=== PATIENT | male | born 1940 | race Caucasian/White ===

== ENCOUNTER 2019-06-15 09:23 | Inpatient (IN) | payer MEDICARE ==
[~2019-06-15] VITALS: Ht 170.2 cm; Wt 45.4 kg
[2019-06-15 09:31] VITALS: Ht 170.2 cm; Wt 45.4 kg
[2019-06-15 10:10] LABS: PLATELET COUNT 255 x10^3mcL (130-400); RED CELL DISTRIBUTION WIDTH 13.8 % (11.5-14.5)
[2019-06-15 10:22] LABS: CARBON DIOXIDE 25.9 mmol/L (21-32); CHLORIDE SERUM 107 mmol/L (98-107); CREATININE SERUM 3.4 mg/dL (0.7-1.3); GLUCOSE SERUM 105 mg/dL (74-106); POTASSIUM SERUM 4.3 mmol/L (3.5-5.1); SODIUM SERUM 144 mmol/L (136-145)
[2019-06-15] MEDS ORDERED: XTANDI40 M1 PO (10:25)
[2019-06-15] MEDS ORDERED: ZOLOFT25 MG PO (10:25)
[2019-06-15] MEDS ORDERED: COMTAN200 MG PO (10:26)
[2019-06-15] MEDS ORDERED: SINEMET 25-1001 TAB PO (10:26)
[2019-06-15 10:33] LABS: T3 TOTAL 0.33 ng/mL
[2019-06-15 10:55] LABS: BAND NEUTROPHIL 25 % (0-10); BASOPHIL 0 % (0-2); METAMYELOCTE 2 % (0-2); MONOCYTE 1 % (0-7); SEGMENTED NEUTROPHILS 62 % (37-75)
[2019-06-15 10:56] LABS: PLATELET MORPHOLOGY PLATELETS NORMAL
[2019-06-15 10:58] LABS: CK-MB 1.7 ng/mL (0-3.6)
[2019-06-15 11:03] LABS: FREE T4 0.94 ng/dL (0.76-1.46); FREE THYROXINE INDEX 1.8 ug/dL (1.4-4.5)
[2019-06-15 11:37] LABS: UA SPECIFIC GRAVITY >=1.030 (1.005-1.035); microscopic required? YES; urine erythrocyte 3+ (NEGATIVE)
[2019-06-15 11:39] LABS: ERYTHROCYTE SED RATE 89 mm/hr (0-20)
[2019-06-15 11:44] LABS: ALBUMIN 2.3 g/dL (3.4-5.0); TOTAL PROTEIN, SERUM 6.5 g/dL (6.4-8.2)
[2019-06-15 11:45] LABS: ALKALINE PHOSPHATASE 79 U/L (46-116); ALT/SGPT 12 U/L (16-63); AST/SGOT 54 U/L (15-37); BILIRUBIN TOTAL 0.6 mg/dL (0.20-1.00)
[2019-06-15 12:18] LABS: C REACTIVE PROTEIN 34.9 mg/dL (<=0.9)
[2019-06-15 13:23] LABS: MAGNESIUM 2.5 mg/dL (1.8-2.4); PHOSPHOROUS 4.6 mg/dL (2.5-4.9)
[2019-06-15 15:02] VITALS: BP 128/70
[2019-06-15 16:35] VITALS: BP 98/64
[2019-06-15 21:28] VITALS: BP 110/68
[2019-06-16 05:55] VITALS: BP 120/68
[2019-06-16 06:43] LABS: PLATELET COUNT 170 x10^3mcL (130-400); RED CELL DISTRIBUTION WIDTH 14.1 % (11.5-14.5)
[2019-06-16 07:23] LABS: CALCIUM 7.5 mg/dL (8.5-10.1); CARBON DIOXIDE 19.9 mmol/L (21-32); CHLORIDE SERUM 114 mmol/L (98-107); CREATININE SERUM 2.2 mg/dL (0.7-1.3); GLUCOSE SERUM 84 mg/dL (74-106); POTASSIUM SERUM 3.7 mmol/L (3.5-5.1); SODIUM SERUM 147 mmol/L (136-145)
[2019-06-16 09:00] VITALS: BP 132/71
[2019-06-16 10:30] LABS: BAND NEUTROPHIL 23 % (0-10); BASOPHIL 0 % (0-2); METAMYELOCTE 2 % (0-2); SEGMENTED NEUTROPHILS 64 % (37-75)
[2019-06-16 10:32] LABS: MONOCYTE 3 % (0-7)
[2019-06-16 10:34] LABS: rbc morphology (normal/abnorm) ABNORMAL (NORMAL)
[2019-06-16 10:35] LABS: PLATELET MORPHOLOGY PLATELETS NORMAL; burr cell (echinocyte) 1+
[2019-06-16 11:57] VITALS: BP 116/64
[2019-06-16 17:01] VITALS: BP 119/62
[2019-06-16 20:42] VITALS: BP 123/61
[2019-06-17 05:09] VITALS: BP 147/75
[2019-06-17 09:14] VITALS: BP 133/65
[2019-06-17 11:09] VITALS: BP 133/65
[2019-06-17 13:25] VITALS: BP 118/73
[2019-06-17 17:19] VITALS: BP 127/64
[2019-06-17 20:32] VITALS: BP 147/74
[2019-06-18 04:45] VITALS: BP 137/67
[2019-06-18 07:26] LABS: PLATELET COUNT 178 x10^3mcL (130-400); RED CELL DISTRIBUTION WIDTH 14.1 % (11.5-14.5)
[2019-06-18 07:31] LABS: CALCIUM 7.1 mg/dL (8.5-10.1); CARBON DIOXIDE 23.4 mmol/L (21-32); CHLORIDE SERUM 114 mmol/L (98-107); CREATININE SERUM 0.7 mg/dL (0.7-1.3); GLUCOSE SERUM 75 mg/dL (74-106); PHOSPHOROUS 2.1 mg/dL (2.5-4.9); SODIUM SERUM 150 mmol/L (136-145)
[2019-06-18 07:34] LABS: POTASSIUM SERUM 2.3 mmol/L (3.5-5.1)
[2019-06-18 09:07] VITALS: BP 142/66
[2019-06-18 09:34] LABS: BAND NEUTROPHIL 0 % (0-10); BASOPHIL 0 % (0-2); MONOCYTE 2 % (0-7); PLATELET MORPHOLOGY PLATELETS DECREASED; SEGMENTED NEUTROPHILS 94 % (37-75); rbc morphology (normal/abnorm) ABNORMAL (NORMAL)
[2019-06-18 14:18] VITALS: BP 144/81
[2019-06-18 17:34] VITALS: BP 136/77
[2019-06-18 18:28] VITALS: BP 136/77
== END 2019-06-18 19:31 | disposition short-term general hospital (02) | DRG 871 ==
LOC: ED 09:23 → DU 12:08
PROVIDERS: Internal Medicine; Specialist; ADMIT General Practice
DX: A41.9 Sepsis, unspecified organism (principal); N17.0 Acute kidney failure with tubular necrosis; J96.00 Acute respiratory failure, unspecified whether with hypoxia or hypercapnia; I21.4 Non-ST elevation (NSTEMI) myocardial infarction; R65.21 Severe sepsis with septic shock; N39.0 Urinary tract infection, site not specified; C79.9 Secondary malignant neoplasm of unspecified site; E87.0 Hyperosmolality and hypernatremia; R64 Cachexia; E44.0 Moderate protein-calorie malnutrition; Z68.1 Body mass index [BMI] 19.9 or less, adult; C61 Malignant neoplasm of prostate; E86.0 Dehydration; I51.7 Cardiomegaly; G20 Parkinson's disease; F02.80 Dementia in other diseases classified elsewhere, unspecified severity, without behavioral disturbance, psychotic disturbance, mood disturbance, and anxiety; I10 Essential (primary) hypertension; Z79.899 Other long term (current) drug therapy; Z86.73 Personal history of transient ischemic attack (TIA), and cerebral infarction without residual deficits
CPT/HCPCS: 36600; 84439; 87804; G0378; J1956; J3480; J3490; J7030; J7070; J7620; Q0092